=== PATIENT | female | born 1985 | race Caucasian/White ===

== ENCOUNTER 2022-08-06 20:25 | Emergency (ER) | payer MEDICAID ==
--- NOTE | 2022-08-06 20:56 | ED Physician Documentation ---
History of Present Illness - Stated complaint Stated Complaint: LOWER SPINE PAIN - Chief complaint Chief Complaint: Back Pain - Additonal information Additional information: Patient 37-year-old female presenting with low back pain. Reports slipped and fell approximately 4 feet onto a concrete step earlier today. Denies head trauma or loss of consciousness. Reports that approximately 1 month ago 07/07/2022 was diagnosed with a sacral fracture. Currently reports loss of feeling to the outer aspect of her right buttock. Denies loss of bowel or bladder control. PD PAST MEDICAL HISTORY - Present Medications Home Medications: Ambulatory Orders Medication Instructions Recorded Confirmed DULoxetine [Cymbalta] 90 mg PO DAILY 08/06/22 08/06/22 - Allergies Allergies/Adverse Reactions: Allergies Allergy/AdvReac Type Severity Reaction Status Date / Time cefaclor [From Ceclor] Allergy Unknown Verified 08/06/22 20:38 Sulfa (Sulfonamide Allergy Unknown Verified 08/06/22 20:38 Antibiotics) tramadol AdvReac Headache Verified 08/06/22 20:38 Results - Vitals Vitals: Vital Signs - 24 hr 08/06/22 08/06/22 08/06/22 20:39 20:55 22:14 Temperature 36.9 C Heart Rate 90 84 77 Respiratory 16 17 14 Rate Blood Pressure 114/75 102/67 105/68 O2 Saturation 98 99 98 Oxygen O2 Source Room air - Labs Labs: Laboratory Tests 08/06/22 08/06/22 08/06/22 21:14 21:14 21:59 WBC 8.1 RBC 3.87 L Hgb 11.6 L Hct 36.2 L MCV 93.5 MCH 30.0 MCHC 32.0 RDW 12.6 Plt Count 227 MPV 8.6 Neut # (Auto) 2.9 Lymph # (Auto) 4.3 H [place] # (Auto) 0.5 Eos # (Auto) 0.3 Baso # (Auto) 0.1 Absolute Nucleated RBC 0.00 Nucleated RBC % 0.0 Sodium 137 Potassium 3.3 L Chloride 105 Carbon Dioxide 24 Anion Gap 8.0 BUN 16 Creatinine 0.6 Estimated GFR (MDRD) 112 Glucose 103 H Calcium 8.9 Total Bilirubin 0.5 AST 16 ALT 11 Alkaline Phosphatase 58 Total Protein 6.7 Albumin 4.0 Globulin 2.7 Albumin/Globulin Ratio 1.5 Lipase 88 H Urine Color Urine Clarity Urine pH Ur Specific [place] Urine Protein Urine Glucose (UA) Urine Ketones Urine Occult Blood Urine Nitrite Urine Bilirubin Urine Urobilinogen Ur Leukocyte Esterase Ur Microscopic Review Urine Culture Comments Urine HCG, Qual NEGATIVE Urine Opiates Screen Ur Oxycodone Screen Urine Methadone Screen Ur Propoxyphene Screen Ur Barbiturates Screen Ur Tricyclics Screen Ur Phencyclidine Scrn Ur Amphetamine Screen U Methamphetamines Scrn U Benzodiazepines Scrn Urine Cocaine Screen U Cannabinoids Screen 08/06/22 21:59 WBC RBC Hgb Hct MCV MCH MCHC RDW Plt Count MPV Neut # (Auto) Lymph # (Auto) [place] # (Auto) Eos # (Auto) Baso # (Auto) Absolute Nucleated RBC Nucleated RBC % Sodium Potassium Chloride Carbon Dioxide Anion Gap BUN Creatinine Estimated GFR (MDRD) Glucose Calcium Total Bilirubin AST ALT Alkaline Phosphatase Total Protein Albumin Globulin Albumin/Globulin Ratio Lipase Urine Color YELLOW Urine Clarity CLEAR Urine pH 6.0 Ur Specific [place] 1.015 Urine Protein NEGATIVE Urine Glucose (UA) NEGATIVE Urine Ketones NEGATIVE Urine Occult Blood NEGATIVE Urine Nitrite NEGATIVE Urine Bilirubin NEGATIVE Urine Urobilinogen 0.2 (NORMAL) Ur Leukocyte Esterase NEGATIVE Ur Microscopic Review NOT INDICATED Urine Culture Comments NOT INDICATED Urine HCG, Qual Urine Opiates Screen NEGATIVE Ur Oxycodone Screen NEGATIVE Urine Methadone Screen NEGATIVE Ur Propoxyphene Screen NEGATIVE Ur Barbiturates Screen NEGATIVE Ur Tricyclics Screen NEGATIVE Ur Phencyclidine Scrn NEGATIVE Ur Amphetamine Screen NEGATIVE U Methamphetamines Scrn NEGATIVE U Benzodiazepines Scrn NEGATIVE Urine Cocaine Screen NEGATIVE U Cannabinoids Screen POSITIVE H PD Medical Decision Making - ED course Complexity details: reviewed old records, reviewed results, re-evaluated patient, considered differential, d/w patient ED course: Patient is a 37-year-old female presenting to the emergency department with low back pain in setting of recent S3 spinal fracture. Reported a fall while sledding 07/07/2022 and was diagnosed with an S3 stable sacral fracture. Orthopedic recommendation at that time per documentation from [facility] in [facility] was conservative management and follow-up with primary care. Today slipped and fell onto the area again. Endorse for some numbness around the left buttock but did not demonstrate any indications of spinal cord compression or "red flag symptoms". She was noted to be able to ambulate with a slightly antalgic gait while in the emergency department. IV access was obtained and she was given medication for pain control. Documentation does show that she has been seen twice recently at [place] emergency department for pain related complaints both on July 12 and . She received prescriptions for Percocet on both of those occasions. I did obtain labs which were within normal limits or nonactionable. I did obtain a CT scan of her thoracic and lumbar spine which redemonstrated the known fracture but no other acute abnormality. I will discharge at this time for follow-up with primary care. Will provide starter pack of Percocet for pain management until she has a chance to follow-up with primary care. Clear return precautions given prior to discharge. Departure - Departure Clinical Impression: Fall Qualifiers: Encounter type: initial encounter Qualified Code(s): W19.XXXA - Unspecified fall, initial encounter Sacral fracture, closed Qualifiers: Encounter type: subsequent encounter Zone of sacrum fracture: unspecified portion of sacrum Fracture healing: with routine healing Qualified Code(s): S32.10XD - Unspecified fracture of sacrum, subsequent encounter for fracture with routine healing Comments: Thank you for allowing us to care for you today would be [facility]. Today in the emergency department your evaluated for any possible life- threatening medical emergency. Testing performed today including blood work, urine analysis and the CT scans of your thoracic and lumbar spine were reassuring. He is redemonstrated the known fracture that you have with your Sacrum but there was no new or acute injury identified. I will be discharging with a small number of Percocet for use for pain control until you have an opportunity to contact your primary care doctor. Please be aware that this medication is both sedating and habit-forming. It should not be used if you are operating a motor vehicle, using heavy machinery or you are the sole gis technician of young children. This medication cannot be refilled from the emergency department.
[2022-08-06] MEDS ORDERED: ONDANSETRON 4 MG/2 ML VIAL IVP STA (20:59)
[2022-08-06 21:18] LABS: BASOPHILS # (AUTO) 0.1 10^3/uL (0.0-0.1); BASOPHILS % (AUTO) 0.7 %; EOSINOPHILS # (AUTO) 0.3 10^3/uL (0.0-0.7); HCT - HEMATOCRIT 36.2 % (37.0-47.0); HGB - HEMOGLOBIN 11.6 g/dL (12.0-16.0); LYMPHOCYTES # (AUTO) 4.3 10^3/uL (1.5-3.5); LYMPHOCYTES % (AUTO) 53.2 %; MEAN CORPUSCULAR VOLUME 93.5 fL (81.0-99.0); MEAN PLATELET VOLUME 8.6 fL (7.9-10.8); MONOCYTES # (AUTO) 0.5 10^3/uL (0.0-1.0); MONOCYTES % (AUTO) 6.5 %; NEUTROPHILS # (AUTO) 2.9 10^3/uL (1.5-6.6); NEUTROPHILS % (AUTO) 35.4 %; PLT - PLATELET COUNT 227 10^3/uL (130-450); RED BLOOD COUNT 3.87 10^6/uL (4.20-5.40); RED CELL DISTRIBUTION WIDTH 12.6 % (12.0-15.0); WHITE BLOOD COUNT 8.1 x10^3/uL (4.8-10.8)
[2022-08-06] MEDS: fentaNYL 100 MCG/2 ML VIAL IVP PRN ×2 (21:18→23:16)
[2022-08-06 21:29] LABS: ALBUMIN/GLOBULIN RATIO 1.5 (1.0-2.2); BILIRUBIN,TOTAL 0.5 mg/dL (0.2-1.0); CALCIUM 8.9 mg/dL (8.5-10.3); CREATININE 0.6 mg/dL (0.4-1.0); POTASSIUM 3.3 mmol/L (3.5-5.0); TOTAL PROTEIN 6.7 g/dL (6.7-8.2)
[2022-08-06 22:04] LABS: MUDS CUTOFF CONCENTRATIONS CUTOFF CONC BELOW:
[2022-08-06 22:08] LABS: BILIRUBIN,URINE NEGATIVE (NEGATIVE); GLUCOSE, URINE (UA) NEGATIVE (NEGATIVE); KETONES,URINE (UA) NEGATIVE (NEGATIVE); LEUKOCYTE ESTERASE, URINE NEGATIVE (NEGATIVE); NITRITE,URINE NEGATIVE (NEGATIVE); OCCULT BLOOD,URINE NEGATIVE (NEGATIVE); PROTEIN,URINE NEGATIVE (NEGATIVE); UROBILINOGEN,URINE 0.2 (NORMAL) E.U./dL (NORMAL)
[2022-08-06 22:09] LABS: HCG UR QUAL NEGATIVE
[2022-08-06 22:30] LABS: CLARITY,URINE CLEAR (CLEAR)
[2022-08-06 22:32] LABS: AMPHETAMINE SCREEN,URINE NEGATIVE (NEGATIVE); BARBITURATE SCREEN,UR NEGATIVE (NEGATIVE); BENZODIAZEPINES SCREEN, URINE NEGATIVE (NEGATIVE); COCAINE SCREEN URINE NEGATIVE (NEGATIVE); METHADONE SCREEN, URINE NEGATIVE (NEGATIVE); METHAMPHETAMINES SCREEN, URINE NEGATIVE (NEGATIVE); OPIATE SCREEN, URINE NEGATIVE (NEGATIVE); OXYCODONE SCREEN, URINE NEGATIVE (NEGATIVE); PROPOXYPHENE SCREEN, URINE NEGATIVE (NEGATIVE); THC CANNABINOID SCREEN, URINE POSITIVE (NEGATIVE); TRICYCLIC ANTIDEPRESSANT,URINE NEGATIVE (NEGATIVE)
--- NOTE | 2022-08-06 23:30 | CT Report ---
PROCEDURE: LUMBAR SPINE WO INDICATIONS: Fall today, h/o sacrum fracture 1 month ago TECHNIQUE: Noncontrast 3 mm thick sections acquired from the T12 level to the sacrum. Sagittal and coronal refo rmats were constructed. For radiation dose reduction, the following was used: automated exposure co ntrol, adjustment of mA and/or kV according to patient size. COMPARISON: None. FINDINGS: Image quality: Excellent. Bones: There is normal bony alignment. Nondisplaced right paracentral fracture of the S3 level. No acute vertebral body compression fractures. No suspicious lytic or blastic bony lesions. Central sp inal caliber is of normal overall caliber. No pars defects. Disc spaces are normal. Soft tissues: No retroperitoneal masses or hematomas. Visualized aorta is normal in caliber. Nonob structing bilateral upper pole punctate intrarenal calcification. IMPRESSION: 1. No CT evidence of acute lumbar spine fracture. 2. Known right S3 fracture. Reviewed by: Becky Arzate MD on 08/06/2022 11:40 PM PST Approved by: Becky Arzate MD on 08/06/2022 11:40 PM PST Station ID: [id number]
--- NOTE | 2022-08-06 23:32 | CT Report ---
PROCEDURE: THORACIC SPINE WO INDICATIONS: fall TECHNIQUE: Noncontrast 3 mm thick sections acquired through the region of interest in the thoracic spine. Sagit dorothy and coronal reformats were then constructed. For radiation dose reduction, the following was used : automated exposure control, adjustment of mA and/or kV according to patient size. COMPARISON: None. FINDINGS: Image quality: Excellent. Bones: There is normal overall bony alignment. No acute vertebral body compression fractures. No s uspicious sclerotic or lytic bony lesions. Central spinal canal is of normal overall caliber. Soft tissues: No paravertebral masses or hematomas. Nonobstructing upper pole bilateral intrarenal calcifications. Visualized posteromedial lungs appear clear. IMPRESSION: 1. Intact thoracic spine. Reviewed by: Becky Arzate MD on 08/06/2022 11:42 PM PST Approved by: Becky Arzate MD on 08/06/2022 11:42 PM PST Station ID: [id number]
[2022-08-06] MEDS ORDERED: oxyCODONE/ACET 5/325 Prepack 4 PO STA (23:33)
[2022-08-06 23:36] VITALS: BP 95/44
== END 2022-08-06 23:50 | disposition home or self-care (01) ==
LOC: ED 20:25
DX: S32.10XD Unspecified fracture of sacrum, subsequent encounter for fracture with routine healing (principal); W10.9XXA Fall (on) (from) unspecified stairs and steps, initial encounter; Y93.89 Activity, other specified
CPT/HCPCS: 36415; 80053; 80306; 81001; 81003; 81025; 83690; 85025; 87086; 96374; 96375; 96376; 99284

== ENCOUNTER 2022-08-14 03:07 | Outpatient (CLI) | payer MEDICAID | END 2022-08-14 23:59 | disposition short-term general hospital (02) | LOC: EMS 03:07 | DX: R11.2 Nausea with vomiting, unspecified (principal); R10.13 Epigastric pain; R19.7 Diarrhea, unspecified | CPT/HCPCS: A0425; A0427; A0999 ==

== ENCOUNTER 2022-08-26 22:24 | Emergency (ER) | payer MEDICAID ==
--- NOTE | 2022-08-27 01:09 | ED Physician Documentation ---
PD HPI ABD PAIN - Stated complaint Stated Complaint: ABD PX - Chief complaint Chief Complaint: Abd Pain - History obtained from History obtained from: Patient - Additional information Additional information: 37-year-old woman presents after waking up around 2130 with sharp pain in the mid abdomen with associated nausea. 2 days ago patient reported having significant constipation and came to the emergency department for work-up which was all negative including CT. Does report having a bowel movement today. Denies fever, urinary symptoms. Review of Systems Constitutional: denies: Fever GI: reports: Abdominal Pain, Nausea PD PAST MEDICAL HISTORY - Past Medical History Cardiovascular: None Respiratory: None Endocrine/Autoimmune: None GI: Other - Past Surgical History Past Surgical History: Yes General: Appendectomy, Other - Present Medications Home Medications: Ambulatory Orders Medication Instructions Recorded Confirmed DULoxetine [Cymbalta] 90 mg PO DAILY 08/06/22 08/06/22 Docusate Sodium 100Mg Capsule 100 mg PO DAILY #20 cap 08/25/22 [Colace 100Mg Capsule] polyethylene glycoL 3350(BULK) 17 gm PO Q2H PRN #1 each 08/25/22 [Miralax] Dicyclomine [Bentyl] 20 mg PO QID PRN #15 tab 08/27/22 - Allergies Allergies/Adverse Reactions: Allergies Allergy/AdvReac Type Severity Reaction Status Date / Time cefaclor [From Ceclor] Allergy Unknown Verified 08/26/22 22:36 Sulfa (Sulfonamide Allergy Unknown Verified 08/26/22 22:36 Antibiotics) tramadol AdvReac Headache Verified 08/26/22 22:36 - Social History Does the pt smoke?: Yes Smoking Status: Current every day smoker Does the pt drink ETOH?: No Does the pt have substance abuse?: No - Immunizations Immunizations are current?: No - POLST Patient has POLST: No PD ED PE NORMAL - Vitals Vital signs reviewed: Yes - General General: Alert and oriented X 3, No acute distress, Well developed/nourished - HEENT HEENT: Atraumatic, PERRL, EOMI - Neck Neck: Supple, no meningeal sign - Cardiac Cardiac: RRR - Respiratory Respiratory: No respiratory distress, Clear bilaterally - Abdomen Abdomen: Non tender, Non distended Results - Vitals Vitals: Vital Signs - 24 hr 03/06/23 03/06/23 03/07/23 22:25 22:44 01:50 Temperature 36.8 C Heart Rate 84 77 72 Respiratory 16 16 19 Rate Blood Pressure 103/57 L 102/70 97/62 O2 Saturation 100 98 96 Oxygen O2 Source Room air PD Medical Decision Making - ED course ED course: 37-year-old woman presented with abdominal pain identical to pain from previous visit just a few days ago. She had unremarkable work-up including abdominal labs and CT with the exception of constipation. On exam, patient was sleeping comfortably in bed and had benign abdominal exam. Vital signs were normal. I advised her to continue her anticonstipation medications. Additionally sent Bentyl to her pharmacy electronically. Return precautions were given. Plan to follow-up with GI. Departure - Departure Disposition: Home, Self Care Clinical Impression: Abdominal pain Condition: Stable Instructions: Abdominal Pain Follow-Up: Eve Murray MD [Physician No Access] - Prescriptions: Dicyclomine [Bentyl] 20 mg PO QID PRN #15 tab PRN Reason: Abdominal Pain Comments: You were seen in the emergency department for evaluation of abdominal pain. Please follow-up with your primary care provider for referral to gastroenterology. I have also enclosed a referral to GI. Continue taking your constipation medications as prescribed. I additionally sent a medication to your pharmacy electronically to [facility]. Return to the emergency department for new or worsening symptoms or other concerns. Discharge Date/Time: 08/27/22 01:54
[2022-08-27 01:51] VITALS: BP 97/62
== END 2022-08-27 01:54 | disposition home or self-care (01) ==
LOC: ED 22:24
DX: R10.9 Unspecified abdominal pain (principal); F17.200 Nicotine dependence, unspecified, uncomplicated
CPT/HCPCS: 99282; 99284

== ENCOUNTER 2022-10-20 16:06 | Emergency (ER) | payer MEDICAID ==
[2022-10-20] MEDS ORDERED: MORPHINE 2 MG/ML CARPUJECT IVP STA ×2 (16:26→17:41)
--- NOTE | 2022-10-20 16:31 | ED Physician Documentation ---
History of Present Illness - Stated complaint Stated Complaint: LFT ABD/BACK PX - Chief complaint Chief Complaint: Abd Pain - History obtained from History obtained from: Patient - History of Present Illness Timing: Today Pain level max: 9 Pain level now: 9 - Additonal information Additional information: Patient is a 37-year-old female who presents to the emergency department with left low pelvic pain. This started today. Just prior to arrival. She states feels similar to prior ovarian cyst, but is concerned that it could be a kidney stone as well. She states she has had kidney stones in the past. Nothing seems to make it better or worse. She states she took Motrin before arrival without relief. Review of Systems Constitutional: denies: Fever, Chills Respiratory: denies: Cough GI: denies: Nausea, Vomiting, Constipation, Diarrhea, Hematemesis, Bloody / black stool : denies: Dysuria, Frequency, Hesitancy, Discharge Skin: denies: Rash Musculoskeletal: denies: Neck pain, Back pain Neurologic: denies: Headache PD PAST MEDICAL HISTORY - Past Medical History Cardiovascular: None Respiratory: None Endocrine/Autoimmune: None GI: Other - Past Surgical History Past Surgical History: Yes General: Appendectomy, Other - Present Medications Home Medications: Ambulatory Orders Medication Instructions Recorded Confirmed DULoxetine [Cymbalta] 90 mg PO DAILY 08/06/22 08/06/22 Docusate Sodium 100Mg Capsule 100 mg PO DAILY #20 cap 08/25/22 [Colace 100Mg Capsule] polyethylene glycoL 3350(BULK) 17 gm PO Q2H PRN #1 each 08/25/22 [Miralax] Dicyclomine [Bentyl] 20 mg PO QID PRN #15 tab 08/27/22 Ondansetron Odt [Zofran] 4 mg TL Q6H PRN #10 tablet 10/20/22 Oxycodone HCl/Acetaminophen 1 - 2 each PO Q6H PRN #14 tablet 10/20/22 [Percocet 5-325 mg Tablet] MDD 6 tabs - Allergies Allergies/Adverse Reactions: Allergies Allergy/AdvReac Type Severity Reaction Status Date / Time cefaclor [From Ceclor] Allergy Unknown Verified 10/20/22 16:12 ketorolac [From Toradol] Allergy Headache Verified 10/20/22 16:13 Sulfa (Sulfonamide Allergy Unknown Verified 10/20/22 16:12 Antibiotics) tramadol AdvReac Headache Verified 10/20/22 16:12 - Social History Does the pt smoke?: Yes Smoking Status: Current every day smoker Does the pt drink ETOH?: No Does the pt have substance abuse?: No - Immunizations Immunizations are current?: No - POLST Patient has POLST: No PD ED PE NORMAL - Vitals Vital signs reviewed: Yes - General General: Alert and oriented X 3, No acute distress, Well developed/nourished - HEENT HEENT: PERRL, Moist mucous membranes - Neck Neck: Supple, no meningeal sign - Cardiac Cardiac: RRR, Strong equal pulses - Respiratory Respiratory: No respiratory distress, Clear bilaterally - Abdomen Abdomen: Soft, Non distended, Other (mild TTP L pelvic area) - Back Back: No CVA TTP, No spinal TTP - Derm Derm: Warm and dry - Extremities Extremities: No edema, No calf tenderness / cord - Neuro Neuro: Alert and oriented X 3 - Psych Psych: Normal mood, Normal affect Results - Vitals Vitals: Vital Signs - 24 hr 10/20/22 10/20/22 10/20/22 16:09 18:19 18:44 Temperature 37 C Heart Rate 98 71 Respiratory 16 18 18 Rate Blood Pressure 103/66 94/53 L 115/59 L O2 Saturation 100 96 96 Oxygen O2 Source Room air - Labs Labs: Laboratory Tests 10/20/22 10/20/22 10/20/22 16:37 16:37 17:03 WBC 9.1 RBC 3.93 L Hgb 12.1 Hct 36.2 L MCV 92.1 MCH 30.8 MCHC 33.4 RDW 12.7 Plt Count 239 MPV 8.9 Neut # (Auto) 4.5 Lymph # (Auto) 3.8 H [place] # (Auto) 0.6 Eos # (Auto) 0.2 Baso # (Auto) 0.1 Absolute Nucleated RBC 0.00 Nucleated RBC % 0.0 Sodium 136 Potassium 3.4 L Chloride 105 Carbon Dioxide 22 Anion Gap 9.0 BUN 17 Creatinine 0.6 Estimated GFR (MDRD) 112 Glucose 99 Calcium 8.7 Total Bilirubin 0.7 AST 16 ALT 10 Alkaline Phosphatase 50 Total Protein 6.7 Albumin 4.2 Globulin 2.5 Albumin/Globulin Ratio 1.7 Lipase 59 H Urine Color YELLOW Urine Clarity CLEAR Urine pH 6.0 Ur Specific [place] 1.015 Urine Protein NEGATIVE Urine Glucose (UA) NEGATIVE Urine Ketones NEGATIVE Urine Occult Blood NEGATIVE Urine Nitrite NEGATIVE Urine Bilirubin NEGATIVE Urine Urobilinogen 0.2 (NORMAL) Ur Leukocyte Esterase NEGATIVE Ur Microscopic Review NOT INDICATED Urine Culture Comments NOT INDICATED Urine HCG, Qual 10/20/22 17:03 WBC RBC Hgb Hct MCV MCH MCHC RDW Plt Count MPV Neut # (Auto) Lymph # (Auto) [place] # (Auto) Eos # (Auto) Baso # (Auto) Absolute Nucleated RBC Nucleated RBC % Sodium Potassium Chloride Carbon Dioxide Anion Gap BUN Creatinine Estimated GFR (MDRD) Glucose Calcium Total Bilirubin AST ALT Alkaline Phosphatase Total Protein Albumin Globulin Albumin/Globulin Ratio Lipase Urine Color Urine Clarity Urine pH Ur Specific [place] Urine Protein Urine Glucose (UA) Urine Ketones Urine Occult Blood Urine Nitrite Urine Bilirubin Urine Urobilinogen Ur Leukocyte Esterase Ur Microscopic Review Urine Culture Comments Urine HCG, Qual NEGATIVE - Rads (name of study) Pelvic ultrasound Relevant Findings:: Final report received, See rad report PD Medical Decision Making - ED course Complexity details: reviewed results, re-evaluated patient, considered differential, d/w patient ED course: Patient is a 37-year-old female who presents to the emergency department with left-sided pelvic pain. No vaginal bleeding or discharge. Her laboratory testing does not show any acute abnormalities. CBC, chemistry and urinalysis are normal. hCG is negative. Appears to have a 2 cm right-sided ovarian hemorrhagic cyst. Has ureteral jets bilaterally and no hydronephrosis in the left kidney. No evidence of ureteral stone. Pain well controlled here. We will treat her for the right-sided ovarian hemorrhagic cyst and have her follow- up with her doctor for further care. She is well-appearing, nontoxic. Afebrile. Patient counseled regarding signs and symptoms for which I believe and urgent re-evaluation would be necessary. Patient with good understanding of and agreement to plan and is comfortable going home at this time This document was made in part using voice recognition software. While efforts are made to proofread this document, sound alike and grammatical errors may occur. Departure - Departure Disposition: 01 Home, Self Care Clinical Impression: Left sided abdominal pain of unknown cause Ovarian cyst Qualifiers: Laterality: right Qualified Code(s): N83.201 - Unspecified ovarian cyst, right side Condition: Good Instructions: ED Abdominal Pain Female Non-Specific Abdominal Pain Follow-Up: Subhash Dunham ARNP [Primary Care Provider] - Within 1 week Prescriptions: Oxycodone HCl/Acetaminophen [Percocet 5-325 mg Tablet] 1 - 2 each PO Q6H PRN #14 tablet MDD 6 tabs PRN Reason: pain Ondansetron Odt [Zofran] 4 mg TL Q6H PRN #10 tablet PRN Reason: Nausea / Vomiting Comments: Your urinalysis, chemistry, CBC and ultrasound do not show any acute abnormalities. Your left ovary appears normal. You do have a small hemorrhagic cyst in the right ovary. You may want to consider a repeat ultrasound in about 6 weeks. Your left ovary appears normal. Your left kidney is normal as well. There is no sign of stone or obstruction. Your prescription was sent to [facility] in [place]. I am prescribing a short course of narcotic pain medication for you. These are potentially dangerous and addictive medications that should be used carefully. These medications may constipate you. Take an [id number] stool softener (docusate) twice daily with plenty of water while taking these medications. If you go 24 hours without a bowel movement, take [id number] miralax, per package instructions. Do not drink or drive while taking these medications. If you received narcotic or sedating medications while in the emergency department, do not drive for 24 hours. Store this medication in a safe, secure place and out of reach of children. It is a violation of federal law to give or sell this medication to another person or to use in a manner other than prescribed. The ED will not refill narcotic prescriptions, including prescriptions lost or stolen. To dispose of unwanted medications: 1. [facility] at [address] in [place] has a medication drop box. They accept prescription medications (in pill form) Friday through Friday 9:00 a.m. to 5:00 p.m. 2. [facility] [employer] [facility] accepts prescription medications (in pill form only) for disposal year round. Call for more information. 3. Contact the [facility] for the next [facility] sponsored prescription drug collection event. , [phone], or [phone]; Discharge Date/Time: 10/20/22 19:13
[2022-10-20 16:44] LABS: BASOPHILS # (AUTO) 0.1 10^3/uL (0.0-0.1); BASOPHILS % (AUTO) 0.5 %; EOSINOPHILS # (AUTO) 0.2 10^3/uL (0.0-0.7); EOSINOPHILS % (AUTO) 2.1 %; HCT - HEMATOCRIT 36.2 % (37.0-47.0); HGB - HEMOGLOBIN 12.1 g/dL (12.0-16.0); LYMPHOCYTES # (AUTO) 3.8 10^3/uL (1.5-3.5); MEAN CORPUSCULAR HEMOGLOBIN 30.8 pg (27.0-31.0); MEAN CORPUSCULAR HGB CONC 33.4 g/dL (32.0-36.0); MEAN CORPUSCULAR VOLUME 92.1 fL (81.0-99.0); MEAN PLATELET VOLUME 8.9 fL (7.9-10.8); MONOCYTES # (AUTO) 0.6 10^3/uL (0.0-1.0); MONOCYTES % (AUTO) 6.1 %; NEUTROPHILS # (AUTO) 4.5 10^3/uL (1.5-6.6); NEUTROPHILS % (AUTO) 49.1 %; PLT - PLATELET COUNT 239 10^3/uL (130-450); RED BLOOD COUNT 3.93 10^6/uL (4.20-5.40); RED CELL DISTRIBUTION WIDTH 12.7 % (12.0-15.0); WHITE BLOOD COUNT 9.1 x10^3/uL (4.8-10.8)
[2022-10-20] MEDS ORDERED: ONDANSETRON 4 MG/2 ML VIAL IVP STA (16:51)
[2022-10-20 16:56] LABS: ALBUMIN 4.2 g/dL (3.2-5.5); ALBUMIN/GLOBULIN RATIO 1.7 (1.0-2.2); BILIRUBIN,TOTAL 0.7 mg/dL (0.2-1.0); CALCIUM 8.7 mg/dL (8.5-10.3); CREATININE 0.6 mg/dL (0.4-1.0); POTASSIUM 3.4 mmol/L (3.5-5.0); TOTAL PROTEIN 6.7 g/dL (6.7-8.2)
[2022-10-20 17:40] LABS: BILIRUBIN,URINE NEGATIVE (NEGATIVE); GLUCOSE, URINE (UA) NEGATIVE (NEGATIVE); KETONES,URINE (UA) NEGATIVE (NEGATIVE); LEUKOCYTE ESTERASE, URINE NEGATIVE (NEGATIVE); NITRITE,URINE NEGATIVE (NEGATIVE); OCCULT BLOOD,URINE NEGATIVE (NEGATIVE); PROTEIN,URINE NEGATIVE (NEGATIVE); UROBILINOGEN,URINE 0.2 (NORMAL) E.U./dL (NORMAL)
[2022-10-20 17:42] LABS: CLARITY,URINE CLEAR (CLEAR)
[2022-10-20 17:43] LABS: HCG UR QUAL NEGATIVE
--- NOTE | 2022-10-20 18:13 | Ultrasound Report ---
PROCEDURE: Pelvic w/Doppler Complete INDICATIONS: Pelvic and flank pain, L. TECHNIQUE: Real-time scanning was performed of the pelvic organs, with image documentation. The patient decline d transvaginal scanning. COMPARISON: None. FINDINGS: Uterus: Uterus is anteverted and normal in size at 7.4 x 4.5 x 5.4 cm. The myometrium is heterogene ous. The endometrium measures 7-8 mm in combined thickness. A 4 mm endometrial cyst can be seen. Ovaries: The right ovary measures 3.4 x 2 x 2.6 cm, with a calculated ovarian volume of 9 cc. The l eft ovary measures 2.9 x 2.1 x 2.4 cm, with a calculated ovarian volume of 8 cc. Within the right ovary, there is a complex cyst that measures 1.7 x 1.5 x 2 cm. The ovaries otherwise have a normal sonographic appearance. Less than 12 follicles can be seen in each ovary. No adnexal masses are seen. No cystic lesions measuring greater than 3 cm. Normal-appearing arterial and venous waveforms are confirmed to each ovary. Other: No pathologic free abdominal or pelvic fluid. The left kidney is normal. On the right, there is mild pelviectasis seen. Both ureteral jets can be s een. IMPRESSION: Negative for ovarian torsion. Likely hemorrhagic cyst involving the right ovary, 2 cm. If clinically appropriate, please consider a short-term follow-up ultrasound in 6 weeks to ensure resolution/improvement. Mild right kidney pelviectasis can be seen. Note: Concordant preliminary findings given by the clinical evaluator upon the completion of the examination to Dr. Shetty. Reviewed by: Luis Barboza MD on 10/20/2022 5:12 PM CARMELO Approved by: Luis Barboza MD on 10/20/2022 5:12 PM CARMELO Station ID: [id number]
[2022-10-20] MEDS ORDERED: oxyCODONE 5 MG TABLET PO STA (18:36)
[2022-10-20 18:45] VITALS: BP 115/59
== END 2022-10-20 19:13 | disposition home or self-care (01) ==
LOC: ED 16:06
DX: R10.9 Unspecified abdominal pain (principal); N83.201 Unspecified ovarian cyst, right side; F17.200 Nicotine dependence, unspecified, uncomplicated
CPT/HCPCS: 36415; 76856; 80053; 81003; 81025; 83690; 85025; 93975; 96374; 96375; 96376; 99284; A9270; 81001; 87086

== ENCOUNTER 2022-10-26 21:34 | Emergency (ER) | payer MEDICAID ==
[2022-10-26] MEDS ORDERED: LIDOCAINE PATCH 5% TOP STA (22:54)
[2022-10-26] MEDS ORDERED: oxyCODONE/ACET 5/325 Prepack 4 PO STA (22:54)
--- NOTE | 2022-10-26 23:03 | ED Physician Documentation ---
PD HPI UPPER EXT INJURY - Stated complaint Stated Complaint: RT SHOULDER PX - Chief complaint Chief Complaint: Ext Problem - History obtained from History obtained from: Patient - Additonal information Additional information: Patient is a 37-year-old female presenting for evaluation of right shoulder pain. Patient states that she has had right shoulder issues for years and was supposed to get an MRI several years ago but it was canceled. She states that her shoulder has been hurting her more in the past 2 weeks. She denies any new injury or trauma. She does not take a blood thinner and Denies IV drug use. She has been taking rqzw-cpa-putmyvv medications without any improvement. Review of Systems Constitutional: denies: Fever Cardiac: denies: Chest pain / pressure Respiratory: denies: Dyspnea GI: denies: Abdominal Pain Musculoskeletal: reports: Joint pain Neurologic: denies: Head injury PD PAST MEDICAL HISTORY - Past Medical History Past Medical History: Yes Cardiovascular: None Respiratory: None Endocrine/Autoimmune: None GI: Other - Past Surgical History Past Surgical History: Yes General: Appendectomy, Other - Present Medications Home Medications: Ambulatory Orders Medication Instructions Recorded Confirmed DULoxetine [Cymbalta] 90 mg PO DAILY 08/06/22 08/06/22 Docusate Sodium 100Mg Capsule 100 mg PO DAILY #20 cap 08/25/22 [Colace 100Mg Capsule] polyethylene glycoL 3350(BULK) 17 gm PO Q2H PRN #1 each 08/25/22 [Miralax] Dicyclomine [Bentyl] 20 mg PO QID PRN #15 tab 08/27/22 Ondansetron Odt [Zofran] 4 mg TL Q6H PRN #10 tablet 10/20/22 Oxycodone HCl/Acetaminophen 1 - 2 each PO Q6H PRN #14 tablet 10/20/22 [Percocet 5-325 mg Tablet] MDD 6 tabs - Allergies Allergies/Adverse Reactions: Allergies Allergy/AdvReac Type Severity Reaction Status Date / Time cefaclor [From Ceclor] Allergy Unknown Verified 10/26/22 21:38 ketorolac [From Toradol] Allergy Headache Verified 10/26/22 21:38 Sulfa (Sulfonamide Allergy Unknown Verified 10/26/22 21:38 Antibiotics) tramadol AdvReac Headache Verified 10/26/22 21:38 - Social History Does the pt smoke?: Yes Smoking Status: Current every day smoker Does the pt drink ETOH?: No Does the pt have substance abuse?: No - Immunizations Immunizations are current?: No - POLST Patient has POLST: No PD ED PE NORMAL - General General: Alert and oriented X 3, No acute distress, Well developed/nourished - HEENT HEENT: Atraumatic - Neck Neck: Supple, no meningeal sign, No bony TTP - Cardiac Cardiac: RRR, Strong equal pulses - Respiratory Respiratory: No respiratory distress, Clear bilaterally - Back Back: No spinal TTP - Derm Derm: No rash - Extremities Extremities: No deformity, No edema, Other (Pain on range of motion of right shoulder, no erythema or swelling, able to abduct to 90 degrees and touch Right hand to left shoulder. Normal range of motion at right elbow and wrist, strength, sensation and pulses intact). No: No tenderness to palpate (Tenderness to right anterior shoulder) - Neuro Neuro: Alert and oriented X 3, No motor deficit, No sensory deficit, Normal speech Results - Vitals Vitals: Vital Signs - 24 hr 10/26/22 10/26/22 21:38 23:07 Temperature 36.5 C Heart Rate 116 H 105 H Respiratory 16 18 Rate Blood Pressure 136/86 H 132/74 H O2 Saturation 98 99 Oxygen O2 Source Room air PD Medical Decision Making - ED course Complexity details: reviewed results, re-evaluated patient, d/w patient ED course: Patient with right shoulder pain. Reports ongoing issues for several years. No recent injury or trauma. An x-ray was obtained which I reviewed and see no signs of a fracture or dislocation. No signs of a septic joint. Neurovascularly intact in the extremity. Discussed need for continued supportive care as well as concerning symptoms to return for. Patient is also advised on need for follow-up with her PCP as she may need further testing such as an MRI. She was given a small amount of narcotic pain medication here with the understanding to use this sparingly. Departure - Departure Disposition: 01 Home, Self Care Clinical Impression: Right shoulder pain Condition: Stable Instructions: ED Shoulder Pain [facility] Follow-Up: Subhash Dunham ARNP [Primary Care Provider] - Comments: Official radiology report is pending but at this time I do not see anything broken or out of place in regards to your shoulder. However you may have an underlying injury to muscles or ligaments that we are not able to see on the x- ray and I would recommend close follow-up with your primary care provider. This is important especially as your pain has been ongoing for several years and recently worsening. I would continue with ice, anti-inflammatories, lidocaine patches. I have given you a small amount of narcotic medication to take home with you tonight and use this sparingly at night to help you get some rest. If there are any significant discrepancies with radiology report I will give you a phone call. I am prescribing a short course of narcotic pain medication for you. These are potentially dangerous and addictive medications that should be used carefully. These medications may constipate you. Take an evde-jzy-wwqfbsx stool softener (docusate) twice daily with plenty of water while taking these medications. If y ou go 24 hours without a bowel movement, take vfij-lmd-izyhans miralax, per package instructions. Do not drink or drive while taking these medications. If you received narcotic or sedating medications while in the emergency department, do not drive for 24 hours. Store this medication in a safe, secure place and out of reach of children. It is a violation of federal law to give or sell this medication to another person or to use in a manner other than prescribed. The ED will not refill narcotic prescriptions, including prescriptions lost or stolen. To dispose of unwanted medications: 1. [facility] at [address] in [place] has a medication drop box. They accept prescription medications (in pill form) Friday through Friday 9:00 a.m. to 5:00 p.m. 2. The [facility] Department accepts prescription medications (in pill form only) for disposal year round. Call for more information. 3. Contact the [facility] for the next [facility] sponsored prescription drug collection event. , [id number], or [id number]; Note that many narcotic pain relievers also contain Tylenol/acetaminophen. Please ensure that your total dose of acetaminophen from all sources does not exceed 3 g (3000 mg) per day. Discharge Date/Time: 10/26/22 23:07
[2022-10-26 23:07] VITALS: BP 132/74
--- NOTE | 2022-10-26 23:22 | XRAY Report ---
PROCEDURE: Shoulder 3 View RT INDICATIONS: pain TECHNIQUE: 4 views of the shoulder were acquired. COMPARISON: None. FINDINGS: Bones: No fractures or dislocations. No suspicious bony lesions. Visualized ribs appear intact. Soft tissues: No suspicious soft tissue calcifications. IMPRESSION: No acute disease. Mild AC joint osteoarthritis. Mild glenohumeral joint osteoarthritic change. Reviewed by: Jose Eduardo Garcia MD on 10/26/2022 11:34 PM PDT Approved by: Jose Eduardo Garcia MD on 10/26/2022 11:34 PM PDT Station ID: [id number]
== END 2022-10-26 23:07 | disposition home or self-care (01) ==
LOC: ED 21:34
DX: M25.511 Pain in right shoulder (principal); F17.200 Nicotine dependence, unspecified, uncomplicated
CPT/HCPCS: 73030; 99283; A9270

== ENCOUNTER 2022-11-16 21:03 | Emergency (ER) | payer MEDICAID ==
[2022-11-16 21:17] VITALS: BP 118/72
[2022-11-16] MEDS ORDERED: HYDROcod/ACETAM 5/325 MG TABLET PO STA (21:21)
[2022-11-16] MEDS ORDERED: PHENAZOPYRIDINE 100 MG TABLET PO STA (21:21)
--- NOTE | 2022-11-16 21:21 | ED Physician Documentation ---
PD HPI ABD PAIN - Stated complaint Stated Complaint: FEMALE - Chief complaint Chief Complaint: Abd Pain - History obtained from History obtained from: Patient - Additional information Additional information: 37-year-old woman developed urinary frequency and dysuria today as well as a feeling of her vagina area being swollen. No possibility of as she is status post tubal ligation. She does have mild flank pain with this but no fevers. PD PAST MEDICAL HISTORY - Past Medical History Cardiovascular: None Respiratory: None Endocrine/Autoimmune: None GI: Other - Past Surgical History Past Surgical History: Yes General: Appendectomy, Other - Present Medications Home Medications: Ambulatory Orders Medication Instructions Recorded Confirmed DULoxetine [Cymbalta] 90 mg PO DAILY 08/06/22 08/06/22 Docusate Sodium 100Mg Capsule 100 mg PO DAILY #20 cap 08/25/22 [Colace 100Mg Capsule] polyethylene glycoL 3350(BULK) 17 gm PO Q2H PRN #1 each 08/25/22 [Miralax] Dicyclomine [Bentyl] 20 mg PO QID PRN #15 tab 08/27/22 Ondansetron Odt [Zofran] 4 mg TL Q6H PRN #10 tablet 10/20/22 Oxycodone HCl/Acetaminophen 1 - 2 each PO Q6H PRN #14 tablet 10/20/22 [Percocet 5-325 mg Tablet] MDD 6 tabs - Allergies Allergies/Adverse Reactions: Allergies Allergy/AdvReac Type Severity Reaction Status Date / Time cefaclor [From Ceclor] Allergy Unknown Verified 10/26/22 21:38 ketorolac [From Toradol] Allergy Headache Verified 10/26/22 21:38 Sulfa (Sulfonamide Allergy Unknown Verified 10/26/22 21:38 Antibiotics) tramadol AdvReac Headache Verified 10/26/22 21:38 - Social History Does the pt smoke?: Yes Smoking Status: Current every day smoker Does the pt drink ETOH?: No Does the pt have substance abuse?: No - Immunizations Immunizations are current?: No - POLST Patient has POLST: No PD ED PE NORMAL - Vitals Vital signs reviewed: Yes - General General: Alert and oriented X 3 - Abdomen Abdomen: Normal bowel sounds, Soft, Non tender - Female 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), Other (Mildly red and swollen vulva bilaterally with some thin white discharge) - Back Back: Other (Mild bilateral CVA tenderness) - Neuro Neuro: Alert and oriented X 3, Normal speech Results - Vitals Vitals: Vital Signs - 24 hr 11/16/22 21:10 Temperature 36.9 C Heart Rate 92 Respiratory 18 Rate Blood Pressure 118/72 O2 Saturation 97 Oxygen O2 Source Room air - Labs Labs: Microbiology 11/16/22 21:54 Wet Prep - Final Vaginal Laboratory Tests 11/16/22 11/16/22 21:15 21:54 Urine Color YELLOW Urine Clarity CLEAR Urine pH 7.0 Ur Specific [place] 1.015 Urine Protein NEGATIVE Urine Glucose (UA) NEGATIVE Urine Ketones NEGATIVE Urine Occult Blood NEGATIVE Urine Nitrite NEGATIVE Urine Bilirubin NEGATIVE Urine Urobilinogen 0.2 (NORMAL) Ur Leukocyte Esterase NEGATIVE Ur Microscopic Review NOT INDICATED Urine Culture Comments NOT INDICATED Urine HCG, Qual NEGATIVE C. glabrata (PCR) NEGATIVE C. krusei (PCR) NEGATIVE Alice species DNA POSITIVE A T. vaginalis (PCR) NEGATIVE Bact Vaginosis (PCR) NEGATIVE PD Medical Decision Making - ED course ED course: H/P most c/w vaginitis, tx with diflican here p swabs. REview of swabs shows + alice for diflucan appropriate. Departure - Departure Disposition: 01 Home, Self Care Clinical Impression: Vaginitis Qualifiers: Chronicity: acute Qualified Code(s): N76.0 - Acute vaginitis Condition: Good Record reviewed to determine appropriate education?: Yes Instructions: ED Vaginosis Bacterial, ED Vaginal Infec Fungal Alice Comments: You are seen today for vaginal inflammation. Given the exam I suspect this is yeast. Less likely but certainly also possible would be bacterial vaginosis. We have treated you for yeast, This only requires a single dose of the medication you were given here.. If you need a different treatment based on the swabs which take some time to process I will call you tomorrow morning. Return for new or worsening symptoms. Follow-up with your doctor mid-to-late this coming week for recheck. Discharge Date/Time: 11/16/22 21:58
[2022-11-16 21:22] LABS: BILIRUBIN,URINE NEGATIVE (NEGATIVE); GLUCOSE, URINE (UA) NEGATIVE (NEGATIVE); KETONES,URINE (UA) NEGATIVE (NEGATIVE); LEUKOCYTE ESTERASE, URINE NEGATIVE (NEGATIVE); NITRITE,URINE NEGATIVE (NEGATIVE); OCCULT BLOOD,URINE NEGATIVE (NEGATIVE); PROTEIN,URINE NEGATIVE (NEGATIVE); UROBILINOGEN,URINE 0.2 (NORMAL) E.U./dL (NORMAL)
[2022-11-16 21:25] LABS: CLARITY,URINE CLEAR (CLEAR); HCG UR QUAL NEGATIVE
[2022-11-16] MEDS ORDERED: HYDROcod/ACET 5/325 Prepack 4 PO STA (21:53)
[2022-11-16] MEDS ORDERED: FLUCONAZOLE 100 MG TABLET PO STA (21:53)
[2022-11-17 00:03] LABS: BACTERIAL VAGINOSIS DNA NEGATIVE (NEGATIVE); CANDIDA GLABRATA DNA NEGATIVE (NEGATIVE); CANDIDA GROUP DNA POSITIVE (NEGATIVE); CANDIDA KRUSEI DNA NEGATIVE (NEGATIVE); TRICHOMONAS VAGINALIS DNA NEGATIVE (NEGATIVE)
== END 2022-11-16 21:58 | disposition home or self-care (01) ==
LOC: ED 21:03
DX: N76.0 Acute vaginitis (principal); F17.200 Nicotine dependence, unspecified, uncomplicated
CPT/HCPCS: 81003; 81025; 81514; 87210; 99283; A9270; 81001; 87086

== ENCOUNTER 2022-11-19 16:58 | Emergency (ER) | payer MEDICAID ==
[2022-11-19] MEDS ORDERED: HYDROmorphone 1 MG/ML CARPUJECT IVP STA ×2 (17:36→18:41)
[2022-11-19 17:42] LABS: BASOPHILS % (AUTO) 0.4 %; EOSINOPHILS # (AUTO) 0.2 10^3/uL (0.0-0.7); EOSINOPHILS % (AUTO) 1.9 %; HCT - HEMATOCRIT 35.8 % (37.0-47.0); LYMPHOCYTES # (AUTO) 3.4 10^3/uL (1.5-3.5); LYMPHOCYTES % (AUTO) 32.5 %; MEAN CORPUSCULAR HGB CONC 33.5 g/dL (32.0-36.0); MEAN CORPUSCULAR VOLUME 92.5 fL (81.0-99.0); MEAN PLATELET VOLUME 9.1 fL (7.9-10.8); MONOCYTES # (AUTO) 0.7 10^3/uL (0.0-1.0); MONOCYTES % (AUTO) 6.4 %; NEUTROPHILS # (AUTO) 6.1 10^3/uL (1.5-6.6); NEUTROPHILS % (AUTO) 58.6 %; PLT - PLATELET COUNT 240 10^3/uL (130-450); RED BLOOD COUNT 3.87 10^6/uL (4.20-5.40); RED CELL DISTRIBUTION WIDTH 13.1 % (12.0-15.0); WHITE BLOOD COUNT 10.3 x10^3/uL (4.8-10.8)
[2022-11-19 17:43] LABS: BILIRUBIN,URINE NEGATIVE (NEGATIVE); GLUCOSE, URINE (UA) NEGATIVE (NEGATIVE); KETONES,URINE (UA) NEGATIVE (NEGATIVE); LEUKOCYTE ESTERASE, URINE TRACE (NEGATIVE); NITRITE,URINE NEGATIVE (NEGATIVE); OCCULT BLOOD,URINE NEGATIVE (NEGATIVE); PH,URINE 6.5 PH (5.0-7.5); PROTEIN,URINE NEGATIVE (NEGATIVE); UROBILINOGEN,URINE 0.2 (NORMAL) E.U./dL (NORMAL)
[2022-11-19 17:45] LABS: CLARITY,URINE CLEAR (CLEAR); HCG UR QUAL NEGATIVE
[2022-11-19 17:52] LABS: ALBUMIN 4.1 g/dL (3.2-5.5); ALBUMIN/GLOBULIN RATIO 1.7 (1.0-2.2); BILIRUBIN,TOTAL 0.4 mg/dL (0.2-1.0); CALCIUM 8.7 mg/dL (8.5-10.3); CREATININE 0.7 mg/dL (0.4-1.0); POTASSIUM 3.8 mmol/L (3.5-5.0); TOTAL PROTEIN 6.5 g/dL (6.7-8.2)
--- NOTE | 2022-11-19 17:58 | ED Physician Documentation ---
History of Present Illness - Stated complaint Stated Complaint: ABD PAIN - Chief complaint Chief Complaint: Abd Pain - History obtained from History obtained from: Patient - History of Present Illness Timing: How many days ago (3) Pain level max: 10 Pain level now: 10 - Additonal information Additional information: Patient is a 37-year-old female presents to the emergency department complaining of vaginal pain and white discharge. She states this been ongoing for the past 3 days. She was seen here recently for same. She states that she had an external pelvic exam with swabs and was treated with "an antibiotic". She states her symptoms have progressively gotten worse since that time. Denies any known STI exposure. She is also having lower abdominal/left pelvic pain. No fevers. Has had chills. Denies any possibility of . Review of Systems Constitutional: reports: Chills. denies: Fever Nose: denies: Rhinorrhea / runny nose, Congestion Respiratory: denies: Cough GI: denies: Abdominal Pain, Nausea, Vomiting, Diarrhea, Hematemesis, Bloody / black stool : reports: Discharge. denies: Dysuria, Frequency, Hesitancy, Now EGA Skin: denies: Rash Musculoskeletal: denies: Neck pain, Back pain Neurologic: denies: Headache PD PAST MEDICAL HISTORY - Past Medical History Cardiovascular: None Respiratory: None Endocrine/Autoimmune: None GI: Other - Past Surgical History Past Surgical History: Yes General: Appendectomy, Other - Present Medications Home Medications: Ambulatory Orders Medication Instructions Recorded Confirmed DULoxetine [Cymbalta] 90 mg PO DAILY 08/06/22 08/06/22 Docusate Sodium 100Mg Capsule 100 mg PO DAILY #20 cap 08/25/22 [Colace 100Mg Capsule] polyethylene glycoL 3350(BULK) 17 gm PO Q2H PRN #1 each 08/25/22 [Miralax] Dicyclomine [Bentyl] 20 mg PO QID PRN #15 tab 08/27/22 Ondansetron Odt [Zofran] 4 mg TL Q6H PRN #10 tablet 10/20/22 Oxycodone HCl/Acetaminophen 1 - 2 each PO Q6H PRN #14 tablet 10/20/22 [Percocet 5-325 mg Tablet] MDD 6 tabs Fluconazole [Diflucan] 1 tablet PO ONCE 1 Days #2 tablet 11/19/22 Oxycodone HCl/Acetaminophen 1 - 2 each PO Q6H PRN #14 tablet 11/19/22 [Percocet 5-325 mg Tablet] MDD 6 tabs metroNIDAZOLE [Flagyl] 500 mg PO BID 7 Days #14 tablet 11/19/22 - Allergies Allergies/Adverse Reactions: Allergies Allergy/AdvReac Type Severity Reaction Status Date / Time cefaclor [From Ceclor] Allergy Unknown Verified 11/19/22 17:01 ketorolac [From Toradol] Allergy Headache Verified 11/19/22 17:01 Sulfa (Sulfonamide Allergy Unknown Verified 11/19/22 17:01 Antibiotics) tramadol AdvReac Headache Verified 11/19/22 17:01 - Social History Does the pt smoke?: Yes Smoking Status: Current every day smoker Does the pt drink ETOH?: No Does the pt have substance abuse?: No - Immunizations Immunizations are current?: No - POLST Patient has POLST: No PD ED PE NORMAL - Vitals Vital signs reviewed: Yes - General General: Alert and oriented X 3, No acute distress - HEENT HEENT: Moist mucous membranes - Neck Neck: Supple, no meningeal sign - Cardiac Cardiac: RRR, Strong equal pulses - Respiratory Respiratory: No respiratory distress, Clear bilaterally - Abdomen Abdomen: Soft, Other (Tender to palpation suprapubic and left pelvic with without peritoneal signs.) - Female Female : Chairman present (Nohemi, SHAKEEL), Other (Thin white discharge, copious amounts. Normal-appearing cervix. Unable to tolerate bimanual testing) - Back Back: No CVA TTP, No spinal TTP - Derm Derm: Warm and dry - Extremities Extremities: No edema, No calf tenderness / cord - Neuro Neuro: Alert and oriented X 3 Results - Vitals Vitals: Vital Signs - 24 hr 11/19/22 11/19/22 11/19/22 17:02 18:02 20:10 Temperature 37.2 C Heart Rate 107 H 86 71 Respiratory 18 16 18 Rate Blood Pressure 122/61 115/69 105/64 O2 Saturation 98 93 94 11/19/22 20:41 Temperature Heart Rate 73 Respiratory Rate Blood Pressure 119/73 O2 Saturation 100 Oxygen O2 Source Room air - Labs Labs: Laboratory Tests 11/19/22 11/19/22 11/19/22 17:10 17:20 17:20 WBC 10.3 RBC 3.87 L Hgb 12.0 Hct 35.8 L MCV 92.5 MCH 31.0 MCHC 33.5 RDW 13.1 Plt Count 240 MPV 9.1 Neut # (Auto) 6.1 Lymph # (Auto) 3.4 [place] # (Auto) 0.7 Eos # (Auto) 0.2 Baso # (Auto) 0.0 Absolute Nucleated RBC 0.00 Nucleated RBC % 0.0 Sodium 139 Potassium 3.8 Chloride 111 Carbon Dioxide 23 Anion Gap 5.0 L BUN 13 Creatinine 0.7 Estimated GFR (MDRD) 94 Glucose 96 Calcium 8.7 Total Bilirubin 0.4 AST 15 ALT 11 Alkaline Phosphatase 55 Total Protein 6.5 L Albumin 4.1 Globulin 2.4 Albumin/Globulin Ratio 1.7 Lipase 82 H Urine Color YELLOW Urine Clarity CLEAR Urine pH 6.5 Ur Specific [place] 1.020 Urine Protein NEGATIVE Urine Glucose (UA) NEGATIVE Urine Ketones NEGATIVE Urine Occult Blood NEGATIVE Urine Nitrite NEGATIVE Urine Bilirubin NEGATIVE Urine Urobilinogen 0.2 (NORMAL) Ur Leukocyte Esterase TRACE H Urine RBC None Seen Urine WBC 4-5 Ur Squamous Epith Cells MANY Squamous H Urine Bacteria Many H Ur Microscopic Review INDICATED Urine Culture Comments NOT INDICATED Urine HCG, Qual NEGATIVE C. glabrata (PCR) C. krusei (PCR) Alice species DNA T. vaginalis (PCR) Bact Vaginosis (PCR) 11/19/22 19:00 WBC RBC Hgb Hct MCV MCH MCHC RDW Plt Count MPV Neut # (Auto) Lymph # (Auto) [place] # (Auto) Eos # (Auto) Baso # (Auto) Absolute Nucleated RBC Nucleated RBC % Sodium Potassium Chloride Carbon Dioxide Anion Gap BUN Creatinine Estimated GFR (MDRD) Glucose Calcium Total Bilirubin AST ALT Alkaline Phosphatase Total Protein Albumin Globulin Albumin/Globulin Ratio Lipase Urine Color Urine Clarity Urine pH Ur Specific [place] Urine Protein Urine Glucose (UA) Urine Ketones Urine Occult Blood Urine Nitrite Urine Bilirubin Urine Urobilinogen Ur Leukocyte Esterase Urine RBC Urine WBC Ur Squamous Epith Cells Urine Bacteria Ur Microscopic Review Urine Culture Comments Urine HCG, Qual C. glabrata (PCR) NEGATIVE C. krusei (PCR) NEGATIVE Alice species DNA POSITIVE A T. vaginalis (PCR) NEGATIVE Bact Vaginosis (PCR) NEGATIVE - Rads (name of study) CT abdomen pelvis Relevant Findings:: Final report received, See rad report PD Medical Decision Making - ED course Complexity details: reviewed results, re-evaluated patient, considered differential, d/w patient Reviewed Lab Results: CBC, chemistry and urinalysis do not show any significant abnormalities. UA appears contaminated. Alice species DNA is positive on swab. ED course: 37-year-old female with worsening pelvic pain. She does have a left-sided corpus luteum cyst on CT scan. Possible that this is contributing to her pain as well. She is positive for Alice. We will place on Diflucan for home. Her discharge appears consistent bacterial vaginitis and we will add Flagyl as well. We will place on pain medication as well. Testing for gonorrhea, chlamydia and trichomonas was sent as well. Patient is well-appearing, nontoxic. Does not appear to have PID clinically. Patient adamantly denies any STI exposure. We will have her follow-up closely with her doctor and return if she worsens. Patient counseled regarding signs and symptoms for which I believe and urgent re-evaluation would be necessary. Patient with good understanding of and agreement to plan and is comfortable going home at this time This document was made in part using voice recognition software. While efforts are made to proofread this document, sound alike and grammatical errors may occur. Pain well controlled with IV Dilaudid and oral oxycodone Departure - Departure Disposition: Home, Self Care Clinical Impression: Bacterial vaginitis, Ovarian cyst, left, Alice vaginitis Condition: Good Instructions: ED Cyst Ovarian, ED Vaginosis Bacterial Follow-Up: your,doctor in 1 week [Other] Prescriptions: Fluconazole [Diflucan] 1 tablet PO ONCE 1 Days #2 tablet metroNIDAZOLE [Flagyl] 500 mg PO BID 7 Days #14 tablet Oxycodone HCl/Acetaminophen [Percocet 5-325 mg Tablet] 1 - 2 each PO Q6H PRN #14 tablet MDD 6 tabs PRN Reason: pain Comments: Your prescriptions were sent to [facility] in [place]. Please take all of the Flagyl until gone. We sent off several swabs tonight as well. If these come back positive we will contact you. You do have a left ovarian cyst, your doctor may want to perform an ultrasound on this in 4 to 6 weeks to ensure resolution. Please return if you worsen. I am prescribing a short course of narcotic pain medication for you. These are potentially dangerous and addictive medications that should be used carefully. These medications may constipate you. Take an bzvo-jxn-jpyvfnm stool softener (docusate) twice daily with plenty of water while taking these medications. If you go 24 hours without a bowel movement, take plxv-flg-xsadmua miralax, per package instructions. Do not drink or drive while taking these medications. If you received narcotic or sedating medications while in the emergency department, do not drive for 24 hours. Store this medication in a safe, secure place and out of reach of children. It is a violation of federal law to give or sell this medication to another person or to use in a manner other than prescribed. The ED will not refill narcotic prescriptions, including prescriptions lost or stolen. To dispose of unwanted medications: 1. [facility] at [address] in [place] has a medication drop box. They accept prescription medications (in pill form) Friday through Friday 9:00 a.m. to 5:00 p.m. 2. The [facility] Department accepts prescription medications (in pill form only) for disposal year round. Call for more information. 3. Contact the [facility] for the next [facility] sponsored prescription drug collection event. , [id number], or [id number]; Discharge Date/Time: 11/19/22 20:45
[2022-11-19 18:03] LABS: RBC,URINE None Seen /HPF (0-5)
[2022-11-19 18:04] LABS: BACTERIA,URINE Many /HPF (None Seen); SQUAMOUS EPITHELIAL CELL,UR MANY Squamous (<= Few)
[2022-11-19] MEDS ORDERED: iohexoL-300 100 ML VIAL ONE (18:40)
--- NOTE | 2022-11-19 20:08 | CT Report ---
PROCEDURE: ABDOMEN/PELVIS W INDICATIONS: diffuse lower abd pain CONTRAST: 100mL Omni 300 TECHNIQUE: After the administration of IV contrast, 5 mm thick sections acquired from the diaphragms to the symp hysis. 5 mm thick coronal and sagittal reformats were acquired. For radiation dose reduction, the f ollowing was used: automated exposure control, adjustment of mA and/or kV according to patient size. COMPARISON: CT abdomen pelvis, 08/24/2022. FINDINGS: Image quality: Excellent. Lung bases and heart: Bibasilar atelectasis. Liver: No solid mass. Gallbladder and biliary tree: Normal gallbladder. No biliary dilation. Spleen: No splenomegaly. Pancreas: No pancreatic ductal dilation. Adrenals: No adrenal nodule. Kidneys and ureters: No hydronephrosis. No renal cystic lesion which requires follow up. No solid mas s. Bowel and peritoneum: No bowel distension. No pathologic free fluid. Moderate amount of stool in colo n. Lymph nodes: No central or retroperitoneal adenopathy. Vessels: No infrarenal aortic aneurysm. PELVIS Reproductive organs: There is a 1.8 cm rim-enhancing cyst in the left ovary, most likely a corpus lut eum. Uterus and the right ovary are normal. Bladder: No abnormal wall thickening, accounting for underdistension. Pelvic lymph nodes: No pelvic adenopathy by size criteria. Bones: No aggressive osseous abnormality. Other: No significant ventral or inguinal hernia. IMPRESSION: 1. No acute medication and terminal pelvis. 2. Moderate amount stool in colon. 3. A 1.8 cm rim-enhancing cyst in the left ovary, most likely a corpus luteum. Reviewed by: Lou Landers MD on 11/19/2022 8:06 PM PDT Approved by: Lou Landers MD on 11/19/2022 8:06 PM PDT Station ID: [id number]
[2022-11-19] MEDS ORDERED: metroNIDAZOLE 250 MG TABLET PO STA (20:10)
[2022-11-19] MEDS ORDERED: oxyCODONE 5 MG TABLET PO STA (20:32)
[2022-11-19] MEDS ORDERED: oxyCODONE/ACET 5/325 Prepack 4 PO STA (20:33)
[2022-11-19 20:44] VITALS: BP 119/73
[2022-11-19 21:49] LABS: BACTERIAL VAGINOSIS DNA NEGATIVE (NEGATIVE); CANDIDA GLABRATA DNA NEGATIVE (NEGATIVE); CANDIDA GROUP DNA POSITIVE (NEGATIVE); CANDIDA KRUSEI DNA NEGATIVE (NEGATIVE); TRICHOMONAS VAGINALIS DNA NEGATIVE (NEGATIVE)
[2022-11-19 23:29] LABS: CHLAMYDIA TRACHOMATIS DNA NEGATIVE (NEGATIVE); NEISSERIA GONORRHOEAE DNA NEGATIVE (NEGATIVE)
[2022-11-19] MEDS ORDERED: iohexoL-300 100 ML VIAL IVP ONE (23:53)
== END 2022-11-19 20:45 | disposition home or self-care (01) ==
LOC: ED 16:58
DX: B37.31 Acute candidiasis of vulva and vagina (principal); N76.0 Acute vaginitis; B96.89 Other specified bacterial agents as the cause of diseases classified elsewhere; N83.12 Corpus luteum cyst of left ovary; F17.200 Nicotine dependence, unspecified, uncomplicated; Z79.899 Other long term (current) drug therapy
CPT/HCPCS: 36415; 74177; 80053; 81001; 81025; 81514; 83690; 85025; 87491; 87591; 96374; 96376; 99284; A9270; J1170; Q9967; 81003; 87086; 87661

== ENCOUNTER 2022-12-17 20:45 | Emergency (ER) | payer MEDICAID ==
[2022-12-17 21:08] LABS: BASOPHILS # (AUTO) 0.1 10^3/uL (0.0-0.1); BASOPHILS % (AUTO) 0.4 %; EOSINOPHILS # (AUTO) 0.2 10^3/uL (0.0-0.7); EOSINOPHILS % (AUTO) 1.7 %; HCT - HEMATOCRIT 39.1 % (37.0-47.0); HGB - HEMOGLOBIN 13.2 g/dL (12.0-16.0); LYMPHOCYTES # (AUTO) 4.6 10^3/uL (1.5-3.5); LYMPHOCYTES % (AUTO) 38.7 %; MEAN CORPUSCULAR HEMOGLOBIN 30.8 pg (27.0-31.0); MEAN CORPUSCULAR HGB CONC 33.8 g/dL (32.0-36.0); MEAN CORPUSCULAR VOLUME 91.1 fL (81.0-99.0); MEAN PLATELET VOLUME 8.7 fL (7.9-10.8); MONOCYTES # (AUTO) 0.7 10^3/uL (0.0-1.0); MONOCYTES % (AUTO) 5.9 %; NEUTROPHILS # (AUTO) 6.4 10^3/uL (1.5-6.6); NEUTROPHILS % (AUTO) 53.1 %; PLT - PLATELET COUNT 242 10^3/uL (130-450); RED BLOOD COUNT 4.29 10^6/uL (4.20-5.40); RED CELL DISTRIBUTION WIDTH 13.3 % (12.0-15.0)
[2022-12-17 21:13] LABS: BILIRUBIN,URINE NEGATIVE (NEGATIVE); GLUCOSE, URINE (UA) NEGATIVE (NEGATIVE); KETONES,URINE (UA) TRACE mg/dL (NEGATIVE); LEUKOCYTE ESTERASE, URINE NEGATIVE (NEGATIVE); NITRITE,URINE NEGATIVE (NEGATIVE); OCCULT BLOOD,URINE NEGATIVE (NEGATIVE); PROTEIN,URINE NEGATIVE (NEGATIVE); UROBILINOGEN,URINE 0.2 (NORMAL) E.U./dL (NORMAL)
[2022-12-17 21:17] LABS: CLARITY,URINE CLEAR (CLEAR); HCG UR QUAL NEGATIVE
[2022-12-17 21:21] LABS: ALBUMIN 4.3 g/dL (3.2-5.5); ALBUMIN/GLOBULIN RATIO 1.3 (1.0-2.2); BILIRUBIN,TOTAL 0.5 mg/dL (0.2-1.0); CALCIUM 9.5 mg/dL (8.5-10.3); CREATININE 0.9 mg/dL (0.4-1.0); POTASSIUM 3.8 mmol/L (3.5-5.0); TOTAL PROTEIN 7.5 g/dL (6.7-8.2)
[2022-12-17] MEDS ORDERED: KETOROLAC 30 MG/ML VIAL IVP STA (22:23)
[2022-12-17] MEDS ORDERED: HYDROmorphone 1 MG/ML CARPUJECT IVP STA ×2 (22:23→23:56)
[2022-12-17] MEDS ORDERED: SODIUM CHLORIDE 0.9% 1,000 ML IV STA (22:24)
[2022-12-17] MEDS ORDERED: iohexoL-300 100 ML VIAL ONE (23:03)
[2022-12-17] MEDS ORDERED: iohexoL-300 100 ML VIAL IVP ONE (23:36)
[2022-12-17 23:46] VITALS: BP 106/65
--- NOTE | 2022-12-17 23:57 | CT Report ---
PROCEDURE: ABDOMEN/PELVIS W INDICATIONS: LLQ abd pain/nausea CONTRAST: Omni 300 100ml TECHNIQUE: After the administration of IV contrast, 5 mm thick sections acquired from the diaphragms to the symp hysis. 5 mm thick coronal and sagittal reformats were acquired. For radiation dose reduction, the f ollowing was used: automated exposure control, adjustment of mA and/or kV according to patient size. COMPARISON: CT abdomen pelvis 11/19/2022 FINDINGS: Image quality: Excellent. Lung bases and heart: Streaky opacities are present within the bases similar compared to prior exam. Liver: No solid mass. Gallbladder and biliary tree: Contracted and overall unremarkable. Spleen: No splenomegaly. Pancreas: No pancreatic ductal dilation. Adrenals: No adrenal nodule. Kidneys and ureters: No hydronephrosis. No renal cystic lesion which requires follow up. No solid mas s. Bowel and peritoneum: No bowel distension. No pathologic free fluid. Prominent colonic stool without obstruction. Colonic diverticula are present without associated inflammatory change. Lymph nodes: No central or retroperitoneal adenopathy. Vessels: No infrarenal aortic aneurysm. PELVIS Reproductive organs: Unremarkable. Bladder: No abnormal wall thickening, accounting for underdistension. Pelvic lymph nodes: No pelvic adenopathy by size criteria. Bones: No aggressive osseous abnormality. Other: No significant ventral or inguinal hernia. IMPRESSION: Prominent colonic stool suggestive constipation. No obstruction. Diverticulosis. Reviewed by: Italia Sanchez MD on 12/18/2022 12:10 AM PDT Approved by: Italia Sanchez MD on 12/18/2022 12:10 AM PDT Station ID: [id number]
[2022-12-18] MEDS ORDERED: HYDROcod/ACETAM 5/325 MG TABLET PO STA (00:46)
--- NOTE | 2022-12-18 00:48 | ED Physician Documentation ---
PD HPI ABD PAIN - Stated complaint Stated Complaint: L SIDE PX - Chief complaint Chief Complaint: Abd Pain - History obtained from History obtained from: Patient - Additional information Additional information: The patient comes to the emergency department chief complaint of left lower quadrant abdominal pain. She states that she has been getting this on and off for last couple of years but this episode seems worse. She denies any fevers or chills. No nausea or vomiting. No change in bowel movements. No blood in her stools. She has actually been seen and worked up a number of times for the same kind of pain but states that "nobody can figure out why get it". She does have a GI appointment coming up later this summer to evaluate this. PD PAST MEDICAL HISTORY - Past Medical History Cardiovascular: None Respiratory: None Endocrine/Autoimmune: None GI: Other - Past Surgical History Past Surgical History: Yes General: Appendectomy, Other - Present Medications Home Medications: Ambulatory Orders Medication Instructions Recorded Confirmed DULoxetine [Cymbalta] 90 mg PO DAILY 08/06/22 08/06/22 Docusate Sodium 100Mg Capsule 100 mg PO DAILY #20 cap 08/25/22 [Colace 100Mg Capsule] polyethylene glycoL 3350(BULK) 17 gm PO Q2H PRN #1 each 08/25/22 [Miralax] Dicyclomine [Bentyl] 20 mg PO QID PRN #15 tab 08/27/22 Ondansetron Odt [Zofran] 4 mg TL Q6H PRN #10 tablet 10/20/22 Oxycodone HCl/Acetaminophen 1 - 2 each PO Q6H PRN #14 tablet 10/20/22 [Percocet 5-325 mg Tablet] MDD 6 tabs Fluconazole [Diflucan] 1 tablet PO ONCE 1 Days #2 tablet 11/19/22 Oxycodone HCl/Acetaminophen 1 - 2 each PO Q6H PRN #14 tablet 11/19/22 [Percocet 5-325 mg Tablet] MDD 6 tabs metroNIDAZOLE [Flagyl] 500 mg PO BID 7 Days #14 tablet 11/19/22 Docusate Sodium 250Mg Capsule 250 mg PO DAILY #30 cap 12/18/22 [Colace 250Mg Capsule] HYDROcod/ACETAM 5/325 [[place] 5/325] 1 - 2 tablet PO Q6H PRN #14 tablet 12/18/22 - Allergies Allergies/Adverse Reactions: Allergies Allergy/AdvReac Type Severity Reaction Status Date / Time cefaclor [From Ceclor] Allergy Unknown Verified 12/17/22 20:48 ketorolac [From Toradol] Allergy Headache Verified 12/17/22 20:48 Sulfa (Sulfonamide Allergy Unknown Verified 12/17/22 20:48 Antibiotics) tramadol AdvReac Headache Verified 12/17/22 20:48 - Social History Does the pt smoke?: Yes Smoking Status: Current every day smoker Does the pt drink ETOH?: No Does the pt have substance abuse?: No - Immunizations Immunizations are current?: No - POLST Patient has POLST: No PD ED PE NORMAL - Vitals Vital signs reviewed: Yes - General General: Alert and oriented X 3, No acute distress, Well developed/nourished - HEENT HEENT: Atraumatic, PERRL, EOMI, Moist mucous membranes - Neck Neck: Supple, no meningeal sign - Cardiac Cardiac: RRR, No murmur, Strong equal pulses - Respiratory Respiratory: No respiratory distress, Clear bilaterally - Abdomen Abdomen: Soft, Non distended, Other (Left lower quadrant abdominal tenderness, no rebound or guarding. Tenderness does not extend to pelvis.) - Derm Derm: Normal color, Warm and dry, No rash - Extremities Extremities: No deformity, No edema - Neuro Neuro: Alert and oriented X 3 - Psych Psych: Normal mood, Normal affect Results - Vitals Vitals: Oxygen O2 Source Room air - Labs Labs: Laboratory Tests 12/17/22 12/17/22 12/17/22 21:02 21:02 21:07 WBC 12.0 H RBC 4.29 Hgb 13.2 Hct 39.1 MCV 91.1 MCH 30.8 MCHC 33.8 RDW 13.3 Plt Count 242 MPV 8.7 Neut # (Auto) 6.4 Lymph # (Auto) 4.6 H [place] # (Auto) 0.7 Eos # (Auto) 0.2 Baso # (Auto) 0.1 Absolute Nucleated RBC 0.00 Nucleated RBC % 0.0 Sodium 136 Potassium 3.8 Chloride 106 Carbon Dioxide 24 Anion Gap 6.0 BUN 16 Creatinine 0.9 Estimated GFR (MDRD) 70 L Glucose 89 Calcium 9.5 Total Bilirubin 0.5 AST 15 ALT 10 Alkaline Phosphatase 55 Total Protein 7.5 Albumin 4.3 Globulin 3.2 Albumin/Globulin Ratio 1.3 Lipase 47 Urine Color YELLOW Urine Clarity CLEAR Urine pH 6.0 Ur Specific [place] 1.025 Urine Protein NEGATIVE Urine Glucose (UA) NEGATIVE Urine Ketones TRACE Urine Occult Blood NEGATIVE Urine Nitrite NEGATIVE Urine Bilirubin NEGATIVE Urine Urobilinogen 0.2 (NORMAL) Ur Leukocyte Esterase NEGATIVE Ur Microscopic Review NOT INDICATED Urine Culture Comments NOT INDICATED Urine HCG, Qual NEGATIVE - Rads (name of study) CT abdomen and pelvis Relevant Findings:: Final report received, See rad report PD Medical Decision Making - ED course Complexity details: reviewed results, re-evaluated patient, considered differential, d/w patient ED course: The patient was worked up with laboratory studies and ultimately, CT of the abdomen and pelvis. Urinalysis was also obtained. The work-up was negative other than demonstrating for constipation. I discussed with the patient that she should eat a high-fiber diet and consider stool softeners though the patient feels that she has been defecating regularly and is skeptical that this is the cause of her pain. Other than this, I explained to the patient that I do not have a reason for her pain. I have encouraged her to continue her plans to follow-up with GI in the coming weeks. We have discussed home management of the symptoms as well as the usual indications for return. Departure - Departure Disposition: 01 Home, Self Care Clinical Impression: Left sided abdominal pain of unknown cause Constipation Qualifiers: Constipation type: unspecified constipation type Qualified Code(s): K59.00 - Constipation, unspecified Condition: Stable Instructions: ED Abdominal Pain Female Non-Specific Abdominal Pain, ED Constipation Prescriptions: Docusate Sodium 250Mg Capsule [Colace 250Mg Capsule] 250 mg PO DAILY #30 cap HYDROcod/ACETAM 5/325 [[place] 5/325] 1 - 2 tablet PO Q6H PRN #14 tablet PRN Reason: Pain Comments: Your laboratory studies look good. Your CT scan shows a large amount of stool in the bladder portion of your large intestine leading into your rectum, according to the radiologist interpretation of your CT. You do not have any kidney stones, diverticulitis, or any evidence of problems with your ovaries. It is not clear why you are having the pain in your abdomen, other than some the effects of the constipation. As we have discussed, you may have some scar tissue from prior surgeries that has attached to send the adjacent structures and sometimes the traction from this causes inflammation and pain. You should continue your plans to follow-up with a GI specialist for further evaluation. In the meantime, we will give you a short course of pain medicine to take as needed. You will need to be sure to take the stool softeners as well, as the pain medicines are constipating and can make constipation worse if already existing. Please also be sure you are eating a high-fiber diet with lots of fresh fruits and vegetables and whole grains, and you are drinking plenty of fluids. Your prescriptions have been electronically transmitted to the [facility] pharmacy in [place]. Discharge Date/Time: 12/18/22 01:09
== END 2022-12-18 01:09 | disposition home or self-care (01) ==
LOC: ED 20:45
DX: R10.32 Left lower quadrant pain (principal); K59.00 Constipation, unspecified; F17.200 Nicotine dependence, unspecified, uncomplicated; Z79.899 Other long term (current) drug therapy
CPT/HCPCS: 36415; 74177; 80053; 81003; 81025; 83690; 85025; 96374; 96376; 99283; 99284; A9270; J1170; Q9967; 81001; 87086

== ENCOUNTER 2022-12-25 23:41 | Emergency (ER) | payer MEDICAID ==
[2022-12-26 00:16] LABS: BILIRUBIN,URINE NEGATIVE (NEGATIVE); GLUCOSE, URINE (UA) NEGATIVE (NEGATIVE); KETONES,URINE (UA) NEGATIVE (NEGATIVE); LEUKOCYTE ESTERASE, URINE NEGATIVE (NEGATIVE); NITRITE,URINE NEGATIVE (NEGATIVE); OCCULT BLOOD,URINE LARGE (NEGATIVE); PROTEIN,URINE NEGATIVE (NEGATIVE); UROBILINOGEN,URINE 0.2 (NORMAL) E.U./dL (NORMAL)
[2022-12-26 00:18] LABS: CLARITY,URINE CLEAR (CLEAR)
--- NOTE | 2022-12-26 00:23 | ED Physician Documentation ---
PD HPI ABD PAIN - Stated complaint Stated Complaint: ABD PX - Chief complaint Chief Complaint: Abd Pain - History obtained from History obtained from: Patient - Additional information Additional information: HPI from patient. Patient c/o abdominal pain, "stabbing" (per patient), onset 2-3 hours [employer] without inciting event while at work. Pain is diffuse throughout abdomen but worst in RLQ, exacerbated with movement and palpation, partially ameliorated with rest and position (lying on left side). Has intermittent nausea but no vomiting. Ibuprofen without improvement. Patient says she has no prescription pain medication at home. Past surgical history includes appendectomy and exploratory laparotomy. Patient says she was driven to ED by s.o. Review of Systems Constitutional: denies: Fever Cardiac: reports: Reviewed and negative Respiratory: reports: Reviewed and negative GI: reports: Abdominal Pain PD PAST MEDICAL HISTORY - Past Medical History Cardiovascular: None Respiratory: None Endocrine/Autoimmune: None GI: Other - Past Surgical History Past Surgical History: Yes General: Appendectomy, Other - Present Medications Home Medications: Ambulatory Orders Medication Instructions Recorded Confirmed DULoxetine [Cymbalta] 90 mg PO DAILY 08/06/22 08/06/22 Fluconazole 150 mg PO ONCE #2 tablet 12/26/22 - Allergies Allergies/Adverse Reactions: Allergies Allergy/AdvReac Type Severity Reaction Status Date / Time cefaclor [From Ceclor] Allergy Unknown Verified 12/25/22 23:52 ketorolac [From Toradol] Allergy Headache Verified 12/25/22 23:52 Sulfa (Sulfonamide Allergy Unknown Verified 12/25/22 23:52 Antibiotics) tramadol AdvReac Headache Verified 12/25/22 23:52 - Social History Does the pt smoke?: Yes Smoking Status: Current every day smoker Does the pt drink ETOH?: No Does the pt have substance abuse?: No - Immunizations Immunizations are current?: No - POLST Patient has POLST: No PD ED PE NORMAL - Vitals Vital signs reviewed: Yes - General General: Alert and oriented X 3, No acute distress, Well developed/nourished, Other (lying left side decubitis on stretcher) - Neck Neck: Supple, no meningeal sign - Cardiac Cardiac: RRR, No murmur - Respiratory Respiratory: No respiratory distress, Clear bilaterally - Abdomen Abdomen: Soft, Non tender, Non distended - Back Back: No CVA TTP - Derm Derm: Normal color, Warm and dry - Extremities Extremities: No edema Results - Vitals Vitals: Oxygen O2 Source Room air - Labs Labs: Laboratory Tests 12/26/22 12/26/22 12/26/22 00:04 00:46 00:46 WBC 13.3 H RBC 3.75 L Hgb 11.6 L Hct 35.2 L MCV 93.9 MCH 30.9 MCHC 33.0 RDW 13.2 Plt Count 225 MPV 8.6 Neut # (Auto) 8.6 H Lymph # (Auto) 3.6 H [place] # (Auto) 0.7 Eos # (Auto) 0.2 Baso # (Auto) 0.1 Absolute Nucleated RBC 0.00 Nucleated RBC % 0.0 Sodium 137 Potassium 3.4 L Chloride 107 Carbon Dioxide 23 Anion Gap 7.0 BUN 13 Creatinine 0.7 Estimated GFR (MDRD) 94 Glucose 125 H Calcium 8.6 Total Bilirubin 0.6 AST 15 ALT 10 Alkaline Phosphatase 55 Total Protein 6.6 L Albumin 3.9 Globulin 2.7 Albumin/Globulin Ratio 1.4 Lipase 58 H Urine Color YELLOW Urine Clarity CLEAR Urine pH 5.0 Ur Specific [place] 1.025 Urine Protein NEGATIVE Urine Glucose (UA) NEGATIVE Urine Ketones NEGATIVE Urine Occult Blood LARGE H Urine Nitrite NEGATIVE Urine Bilirubin NEGATIVE Urine Urobilinogen 0.2 (NORMAL) Ur Leukocyte Esterase NEGATIVE Urine RBC 6-10 H Urine WBC 0-3 Ur Squamous Epith Cells FEW Squamous Urine Bacteria Rare Ur Microscopic Review INDICATED Urine Culture Comments NOT INDICATED C. glabrata (PCR) C. krusei (PCR) Alice species DNA T. vaginalis (PCR) Bact Vaginosis (PCR) 12/26/22 01:30 WBC RBC Hgb Hct MCV MCH MCHC RDW Plt Count MPV Neut # (Auto) Lymph # (Auto) [place] # (Auto) Eos # (Auto) Baso # (Auto) Absolute Nucleated RBC Nucleated RBC % Sodium Potassium Chloride Carbon Dioxide Anion Gap BUN Creatinine Estimated GFR (MDRD) Glucose Calcium Total Bilirubin AST ALT Alkaline Phosphatase Total Protein Albumin Globulin Albumin/Globulin Ratio Lipase Urine Color Urine Clarity Urine pH Ur Specific [place] Urine Protein Urine Glucose (UA) Urine Ketones Urine Occult Blood Urine Nitrite Urine Bilirubin Urine Urobilinogen Ur Leukocyte Esterase Urine RBC Urine WBC Ur Squamous Epith Cells Urine Bacteria Ur Microscopic Review Urine Culture Comments C. glabrata (PCR) NEGATIVE C. krusei (PCR) NEGATIVE Alice species DNA POSITIVE A T. vaginalis (PCR) NEGATIVE Bact Vaginosis (PCR) NEGATIVE PD Medical Decision Making - ED course Complexity details: reviewed results, re-evaluated patient, considered differential, d/w patient ED course: Patient was T+R from this ED for abdominal pain eight days ago with unremarkable w/u including CT A/P, which was her third CT A/P at [facility] over past four months. ZABRINA form reflects that [facility] ED visit is her 31st ED visit over past twelve months to five different [facility] EDs. She has had [address] [facility] ED visits over past five months, and seven ED visits in October 2022 alone involving 2 different EDs. ZABRINA also reflects ten prescription fills for either hydrocodone or oxycodone over past 10 months, only two of which were prescribed by her PMD (Subhash Dunham), the rest by various ED physicians. This is an exceptionally unusual number of ED visits over such a timeframe, and I expressed this to the patient. [facility] blood tests reveal mild leukocytosis (wbc 13.3), very mildly low hgb/hct (hgb 11.6), minimal hypokalemia (3.4), and mild hyperglycemia (125). Lipase is very mildly elevated above normal range (58). UA with 6-10 rbc/hpf, otherwise no notable findings. These test results are not specific to a diagnosis, nor do they indicate need for further emergent testing when combined with H+P. I did note on previous records recurrence of (+) candidiasis, and this result was again positive on tonights test (patient self-swabbed after indicating to me that she has submitted self-swab samples before and was familiar with how to obtain the sample). She is given 150mg diflucan and rx for two more doses to be taken 3 days apart. I advised patient of test results. She was given 5mg oxycodone early in stay, with a second, higher PO dose (10mg) late in stay due to patient report of no improvement in pain. I explained to her that I would not feel comfortable at this time providing an rx for any narcotic/opiate pain medication for her recurrent pain c/o. Emergent imaging also is not indicated at this time for recurrent pain c/o. Patient says her s.o. dropped her off and will be driving her home. I instructed her to contact her PMD to arrange for next available appointment as well as to discuss consideration for regularly scheduled appointments for ongoing reevaluation of recurrent pain c/o. Patient was noted to have borderline low systolic BPs during stay with normal DBP, which she says is typical for her BP readings. Departure - Departure Disposition: 01 Home, Self Care Clinical Impression: Alice vaginitis, Pelvic pain in female Condition: Good Instructions: ED Pelvic Pain UKO, ED Vaginal Infec Fungal Alice Prescriptions: Fluconazole 150 mg PO ONCE #2 tablet Comments: There were no specific abnormalities on tonight's tests. Your white blood cell count was mildly elevated; this is a nonspecific finding and the mild elevation is not to an extent that would indicate further testing is needed from emergent standpoint. Testing tonight did indicate that you continue to test positive for candidiasis (vaginal yeast infection). You are given a dose of medication to treat this (fluconazole), and I am providing prescription for another 2 tablets to be taken every 3 days. Contact your primary care provider this morning when their office opens to arrange for next available appointment for reevaluation. Discharge Date/Time: 12/26/22 04:21
[2022-12-26 00:24] LABS: WBC,URINE 0-3 /HPF (0-5)
[2022-12-26 00:25] LABS: BACTERIA,URINE Rare /HPF (None Seen); SQUAMOUS EPITHELIAL CELL,UR FEW Squamous (<= Few)
[2022-12-26] MEDS ORDERED: oxyCODONE 5 MG TABLET PO STA ×2 (00:43→04:05)
[2022-12-26 00:51] LABS: BASOPHILS # (AUTO) 0.1 10^3/uL (0.0-0.1); BASOPHILS % (AUTO) 0.5 %; EOSINOPHILS # (AUTO) 0.2 10^3/uL (0.0-0.7); EOSINOPHILS % (AUTO) 1.6 %; HCT - HEMATOCRIT 35.2 % (37.0-47.0); HGB - HEMOGLOBIN 11.6 g/dL (12.0-16.0); LYMPHOCYTES # (AUTO) 3.6 10^3/uL (1.5-3.5); LYMPHOCYTES % (AUTO) 27.4 %; MEAN CORPUSCULAR HEMOGLOBIN 30.9 pg (27.0-31.0); MEAN CORPUSCULAR VOLUME 93.9 fL (81.0-99.0); MEAN PLATELET VOLUME 8.6 fL (7.9-10.8); MONOCYTES # (AUTO) 0.7 10^3/uL (0.0-1.0); MONOCYTES % (AUTO) 5.5 %; NEUTROPHILS # (AUTO) 8.6 10^3/uL (1.5-6.6); NEUTROPHILS % (AUTO) 64.8 %; PLT - PLATELET COUNT 225 10^3/uL (130-450); RED BLOOD COUNT 3.75 10^6/uL (4.20-5.40); RED CELL DISTRIBUTION WIDTH 13.2 % (12.0-15.0); WHITE BLOOD COUNT 13.3 x10^3/uL (4.8-10.8)
[2022-12-26 01:11] LABS: ALBUMIN 3.9 g/dL (3.2-5.5); ALBUMIN/GLOBULIN RATIO 1.4 (1.0-2.2); BILIRUBIN,TOTAL 0.6 mg/dL (0.2-1.0); CALCIUM 8.6 mg/dL (8.5-10.3); CREATININE 0.7 mg/dL (0.4-1.0); POTASSIUM 3.4 mmol/L (3.5-5.0); TOTAL PROTEIN 6.6 g/dL (6.7-8.2)
[2022-12-26 03:33] LABS: BACTERIAL VAGINOSIS DNA NEGATIVE (NEGATIVE); CANDIDA GLABRATA DNA NEGATIVE (NEGATIVE); CANDIDA GROUP DNA POSITIVE (NEGATIVE); CANDIDA KRUSEI DNA NEGATIVE (NEGATIVE); TRICHOMONAS VAGINALIS DNA NEGATIVE (NEGATIVE)
[2022-12-26 03:57] VITALS: BP 95/51
[2022-12-26] MEDS ORDERED: FLUCONAZOLE 100 MG TABLET PO STA (04:05)
== END 2022-12-26 04:21 | disposition home or self-care (01) ==
LOC: ED 23:41
DX: B37.31 Acute candidiasis of vulva and vagina (principal); R10.2 Pelvic and perineal pain; F17.200 Nicotine dependence, unspecified, uncomplicated; Z79.899 Other long term (current) drug therapy
CPT/HCPCS: 36415; 80053; 81001; 81514; 83690; 85025; 99283; A9270; 81003; 87086

== ENCOUNTER 2023-01-02 20:29 | Emergency (ER) | payer MEDICAID ==
[2023-01-02 20:58] LABS: BILIRUBIN,URINE NEGATIVE (NEGATIVE); GLUCOSE, URINE (UA) NEGATIVE (NEGATIVE); KETONES,URINE (UA) NEGATIVE (NEGATIVE); LEUKOCYTE ESTERASE, URINE NEGATIVE (NEGATIVE); NITRITE,URINE NEGATIVE (NEGATIVE); OCCULT BLOOD,URINE NEGATIVE (NEGATIVE); PROTEIN,URINE NEGATIVE (NEGATIVE); UROBILINOGEN,URINE 0.2 (NORMAL) E.U./dL (NORMAL)
[2023-01-02 20:59] LABS: CLARITY,URINE CLEAR (CLEAR)
[2023-01-02 21:00] LABS: HCG UR QUAL NEGATIVE
--- NOTE | 2023-01-02 21:43 | ED Physician Documentation ---
History of Present Illness - Stated complaint Stated Complaint: LOWER BACK/ABD PX - Chief complaint Chief Complaint: UTI - History obtained from History obtained from: Patient - Additonal information Additional information: 37yF with history of multiple ED visits for lower abdominal pain, multiple separate narcotic prescribers, p/w lower abd pain and dysuria refractory to ibuprofen and tylenol. denies fever Review of Systems Constitutional: denies: Fever GI: reports: Abdominal Pain. denies: Nausea, Vomiting, Diarrhea : reports: Dysuria, Frequency PD PAST MEDICAL HISTORY - Past Medical History Cardiovascular: None Respiratory: None Endocrine/Autoimmune: None GI: Other - Past Surgical History Past Surgical History: Yes General: Appendectomy, Other - Present Medications Home Medications: Ambulatory Orders Medication Instructions Recorded Confirmed DULoxetine [Cymbalta] 90 mg PO DAILY 08/06/22 08/06/22 Fluconazole 150 mg PO ONCE #2 tablet 12/26/22 - Allergies Allergies/Adverse Reactions: Allergies Allergy/AdvReac Type Severity Reaction Status Date / Time cefaclor [From Ceclor] Allergy Unknown Verified 01/02/23 20:33 ketorolac [From Toradol] Allergy Headache Verified 01/02/23 20:33 Sulfa (Sulfonamide Allergy Unknown Verified 01/02/23 20:33 Antibiotics) tramadol AdvReac Headache Verified 01/02/23 20:33 - Social History Does the pt smoke?: Yes Smoking Status: Current every day smoker Does the pt drink ETOH?: No Does the pt have substance abuse?: No - Immunizations Immunizations are current?: No - POLST Patient has POLST: No PD ED PE NORMAL - Vitals Vital signs reviewed: Yes - General General: Alert and oriented X 3, No acute distress, Well developed/nourished - HEENT HEENT: Atraumatic, PERRL, EOMI - Abdomen Abdomen: Non tender, Non distended - Derm Derm: Normal color, Warm and dry Results - Vitals Vitals: Vital Signs - 24 hr 01/02/23 20:33 Temperature 36.5 C Heart Rate 83 Respiratory 18 Rate Blood Pressure 110/62 O2 Saturation 100 Oxygen O2 Source Room air - Labs Labs: Laboratory Tests 01/02/23 20:44 Urine Color YELLOW Urine Clarity CLEAR Urine pH 7.0 Ur Specific [place] 1.020 Urine Protein NEGATIVE Urine Glucose (UA) NEGATIVE Urine Ketones NEGATIVE Urine Occult Blood NEGATIVE Urine Nitrite NEGATIVE Urine Bilirubin NEGATIVE Urine Urobilinogen 0.2 (NORMAL) Ur Leukocyte Esterase NEGATIVE Ur Microscopic Review NOT INDICATED Urine Culture Comments NOT INDICATED Urine HCG, Qual NEGATIVE PD Medical Decision Making - ED course ED course: 37yF with history of multiple ED visits for lower abdominal pain p/w dysuria and suprapubic abdominal pain. Well appearing with normal vitals and benign exam. u/a negative. d/w patient and advised home symptomatic care. she has hx of narcotic prescriptions from multiple separate prescribers and ZABRINA with frequent ED visits and on her last visit here the ED provider felt uncomfortable prescribing narcotics. I reiterated to her that we are unable to prescribe narcotics and she will need to f/u with her pcp and radiologic technician. return precautions given. Departure - Departure Disposition: 01 Home, Self Care Clinical Impression: Dysuria, Lower abdominal pain Condition: Stable Instructions: ED Abdominal Pain Female Non-Specific Abdominal Pain Comments: You were seen in the ED for abdominal pain and concern for uti. Your urine testing was normal. Please follow up with radiologic technician and return to the ED for other concerns.
[2023-01-02 21:53] VITALS: BP 101/68
== END 2023-01-02 21:50 | disposition home or self-care (01) ==
LOC: ED 20:29
DX: R10.30 Lower abdominal pain, unspecified (principal); R30.0 Dysuria; F17.200 Nicotine dependence, unspecified, uncomplicated
CPT/HCPCS: 81001; 81003; 81025; 87086; 99283